=== PATIENT | male | born 1960 | race Caucasian/White ===

== ENCOUNTER → 2024-11-17 | Outpatient (CLI) | payer OTHER, SELFPAY ==
--- NOTE | 2024-11-17 12:30 | XR_ITS ---
EXAMINATION: PET/CT FUSION SKULL TO THIGH EXAM DATE AND TIME: 09/17/2024 1255 hours INDICATIONS: Diagnosis malignant melanoma post treatment restaging CTDI:vol (mGy) 14.35 DLP: (mGycm) 1577.03 PROCEDURE: 13.7 mCi FDG was administered intravenously To allow for distribution and uptake of radiotracer, the patient was allowed to rest quietly in a shielded room. Imaging was performed on an integrated 16-slice PET/CT scanner, with scanning from the skull base to the mid thigh. Serum blood glucose at the time of the injection was measured 106 mg/dL. CT scanning was performed without oral or intravenous contrast material. FINDINGS: Head and Neck: There is no inna hypermetabolism in the neck. The visualized portions of the brain are normal in appearance on CT. Chest: No hypermetabolic left upper lobe pulmonary nodule, 18 mm Abdomen and Pelvis: There is no inna hypermetabolism in retroperitoneal or pelvic chains. The spleen is normal in size and FDG avidity. Musculoskeletal: Marrow uptake is within normal range. IMPRESSION: Non hypermetabolic 18 mm pulmonary nodule left upper lobe, recommend high-resolution CT chest without contrast follow-up
== END | disposition home or self-care (01) ==
LOC: CDIM 11:49
PROVIDERS: PCP Nurse Practitioner Adult Health; Referring Provider Nurse Practitioner Adult Health; Visit Provider Nurse Practitioner Adult Health
DX: R91.1 Solitary pulmonary nodule (principal)
CPT/HCPCS: 78816; A9552